=== PATIENT | male | born 1950 | race American Indian/Alaskan Native ===

== ENCOUNTER 2020-09-01 13:07 | Emergency (ER) | payer MEDICARE ==
--- NOTE | 2020-09-01 13:56 | Event Note ---
ED Screening Note Date of service: 09/01/20 Time: 13:55 ED Screening Note: Patient complains of intermittent mid abdominal pain x2 weeks and hematuria x yesterday Denies penile discharge, however states he is concerned for STDs This initial assessment/diagnostic orders/clinical plan/treatment(s) is/are subject to change based on patients health status, clinical progression and re- assessment by fellow clinical providers in the ED. Further treatment and workup at subsequent clinical providers discretion. Patient/guardian urged not to elope from the ED as their condition may be serious if not clinically assessed and managed. Initial orders include: Labs
[2020-09-01 14:47] LABS: Basophils # (Auto) 0.1 K/mm3 (0.0-0.1); Basophils % (Auto) 0.7 % (0.0-1.8); Eosinophils % (Auto) 0.5 % (0.0-4.3); Hematocrit 45.9 % (35.5-45.6); Hemoglobin 15.3 gm/dl (11.8-15.2); Lymphocytes # (Auto) 3.3 K/mm3 (1.2-5.4); Lymphocytes % (Auto) 43.3 % (13.4-35.0); Mean Corpuscular HGB Conc 33 % (32-34); Mean Corpuscular Volume 100 fl (84-94); Monocytes # (Auto) 0.4 K/mm3 (0.0-0.8); Monocytes % (Auto) 5.7 % (0.0-7.3); Platelet Count 361 K/mm3 (140-440); Red Cell Distribution Width 13.1 % (13.2-15.2)
[2020-09-01 14:56] LABS: Bacteria,Urine 1+ /HPF (Negative); Bilirubin,Urine NEG (Negative); Blood,Urine LG (Negative); Color,Urine Amber (Yellow); Mucus,Urine 2+ /HPF; RBC,Urine > 182.0 /HPF (0.0-6.0)
[2020-09-01 15:07] LABS: Alanine Aminotransferase 13 units/L (7-56); Albumin 4.3 g/dL (3.9-5); BUN/Creatinine Ratio 19; Blood Urea Nitrogen 17 mg/dL (9-20); Calcium 9.9 mg/dL (8.4-10.2); Hemolysis Index 5
[2020-09-01] MEDS ORDERED: cefTRIAXone/NS 1 GM/50 ML 1 GM/50 ML BAG IV ONE (19:07)
--- NOTE | 2020-09-01 19:13 | Emergency Department Report ---
<PRUDENCIO MIRANDA - Last Filed: 09/01/20 19:09> ED Male HPI - General Chief complaint: Urogenital-Male Stated complaint: BLOOD IN URINE Time Seen by Provider: 09/01/20 13:55 Source: patient Mode of arrival: Ambulatory Limitations: No Limitations - History of Present Illness Initial comments: Patient is a 70-year-old male with patient history of previous tuberculosis approximately 1 year ago who presents to the emergency department with complaint of blood in his urine. He states that he had sex on Thursday and Thursday however had an episode of bleeding after the sex. It was painless. He denies any penile discharge. He then noticed today when he went to the bathroom that there was blood mixed with the urine when he urinated. He states that he has a family history of cancer although he does not report specifically family history of bladder or prostate cancer. He does state that he is a smoker and has been for the past 50 years. He denies any joint pain no history of renal stones. - Related Data Allergies Allergy/AdvReac Type Severity Reaction Status Date / Time No Known Allergies Allergy Unverified 09/01/20 13:53 ED Review of Systems Constitutional: denies: chills, fever ENT: denies: dental pain Respiratory: denies: cough, shortness of breath Cardiovascular: denies: chest pain Endocrine: no symptoms reported Gastrointestinal: abdominal pain. denies: nausea, vomiting, diarrhea Genitourinary: urgency, hematuria. denies: dysuria, discharge, testicular pain, testicular mass Musculoskeletal: denies: back pain Skin: denies: rash Neurological: denies: headache Psychiatric: denies: anxiety, depression Hematological/Lymphatic: easy bleeding ED Past Medical Hx - Past Medical History Previous Medical History?: No - Surgical History Past Surgical History?: No ED Physical Exam - General Limitations: No Limitations General appearance: alert, in no apparent distress - Head Head exam: Present: atraumatic, normocephalic - Eye Eye exam: Present: normal appearance Pupils: Present: normal accommodation - ENT ENT exam: Present: normal exam - Neck Neck exam: Present: normal inspection - Respiratory Respiratory exam: Present: normal lung sounds bilaterally. Absent: respiratory distress, chest wall tenderness - Cardiovascular Cardiovascular Exam: Present: regular rate, normal rhythm, normal heart sounds - GI/Abdominal GI/Abdominal exam: Present: soft, tenderness (mild, suprapubic). Absent: distended - Rectal Rectal exam: Present: deferred - Extremities Exam Extremities exam: Present: normal inspection - Back Exam Back exam: Present: normal inspection - Neurological Exam Neurological exam: Present: alert, oriented X3 - Psychiatric Psychiatric exam: Present: normal affect - Skin Skin exam: Present: warm, dry, intact ED Medical Decision Making - Lab Data Result diagrams: 09/01/20 14:23 09/01/20 14:23 - Medical Decision Making Patient is a 70-year-old male who presents to the emergency department with comp laint of hematuria. Patient he states that he first noticed this on Thursday or Thursday and then again on today. Patient reports he is a smoker for the past 50 years. Given this my differential is urinary tract infection, sexually transmitted infection, bladder malignancy. Patient to be given a dose of IV ceftriaxone. Will obtain chest x- ray given his report of history of tuberculosis and recent weight loss. We will also obtain a CT abdomen pelvis to evaluate for malignancy. Patient will re quire referral to urology. ED Disposition Clinical Impression: Hematuria Qualifiers: Hematuria type: gross Qualified Code(s): R31.0 - Gross hematuria UTI (urinary tract infection) Qualifiers: Urinary tract infection type: acute cystitis Hydronephrosis Qualifiers: Hydronephrosis type: with ureteral calculous obstruction Qualified Code(s): N13.2 - Hydronephrosis with renal and ureteral calculous obstruction Disposition: -01 TO HOME OR SELFCARE Is pt being admited?: No Does the pt Need Aspirin: No Condition: Stable Instructions: Ureteroscopy, Urinary Tract Infection, Adult, [id number], Hematuria, Adult, Kidney Stones, [id number] Prescriptions: Nitrofurantoin Queens/M-Cryst [Macrobid CAP] 100 mg PO Q12HR 5 Days #10 capsule Referrals: ANDRE FLORES MD [Staff Physician] - 3-5 Days PRIMARY CAREMD [Primary Care Provider] - 3-5 Days AMAN CUENCA MD [Staff Physician] - 3-5 Days Print Language: TAMAZIGHT <JOSEP SHELLEY - Last Filed: 09/01/20 20:44> ED Review of Systems ROS: Stated complaint: BLOOD IN URINE Other details as noted in HPI ED Medical Decision Making - Lab Data Result diagrams: 09/01/20 14:23 09/01/20 14:23 Lab Results 09/01/20 09/01/20 09/01/20 Range/Units 14:11 14:23 14:23 WBC 7.7 (4.5-11.0) K/mm3 RBC 4.60 (3.65-5.03) M/mm3 Hgb 15.3 H (11.8-15.2) gm/dl Hct 45.9 H (35.5-45.6) % MCV 100 H (84-94) fl MCH 33 H (28-32) pg MCHC 33 (32-34) % RDW 13.1 L (13.2-15.2) % Plt Count 361 (140-440) K/mm3 Lymph % (Auto) 43.3 H (13.4-35.0) % [place] % (Auto) 5.7 (0.0-7.3) % Eos % (Auto) 0.5 (0.0-4.3) % Baso % (Auto) 0.7 (0.0-1.8) % Lymph # (Auto) 3.3 (1.2-5.4) K/mm3 [place] # (Auto) 0.4 (0.0-0.8) K/mm3 Eos # (Auto) 0.0 (0.0-0.4) K/mm3 Baso # (Auto) 0.1 (0.0-0.1) K/mm3 Seg Neutrophils % 49.8 (40.0-70.0) % Seg Neutrophils # 3.9 (1.8-7.7) K/mm3 Sodium 140 (137-145) mmol/L Potassium 3.8 (3.6-5.0) mmol/L Chloride 103.9 (98-107) mmol/L Carbon Dioxide 27 (22-30) mmol/L Anion Gap 13 mmol/L BUN 17 (9-20) mg/dL Creatinine 0.9 (0.8-1.3) mg/dL Estimated GFR > 60 ml/min BUN/Creatinine Ratio 19 % Glucose 98 (75-100) mg/dL Calcium 9.9 (8.4-10.2) mg/dL Total Bilirubin 0.40 (0.1-1.2) mg/dL AST 14 (5-40) units/L ALT 13 (7-56) units/L Alkaline Phosphatase 91 (35-129) units/L Total Protein 7.6 (6.3-8.2) g/dL Albumin 4.3 (3.9-5) g/dL Albumin/Globulin Ratio 1.3 % Urine Color Adelaida (Yellow) Urine Turbidity Cloudy (Clear) Urine pH 6.0 (5.0-7.0) Ur Specific [place] 1.017 (1.003-1.030) Urine Protein 100 mg/dl (Negative) mg/dL Urine Glucose (UA) Neg (Negative) mg/dL Urine Ketones Neg (Negative) mg/dL Urine Blood Lg (Negative) Urine Nitrite Neg (Negative) Urine Bilirubin Neg (Negative) Urine Urobilinogen 2.0 (<2.0) mg/dL Ur Leukocyte Esterase Sm (Negative) Urine WBC (Auto) 90.0 H (0.0-6.0) /HPF Urine RBC (Auto) > 182.0 (0.0-6.0) /HPF Urine Bacteria (Auto) 1+ (Negative) /HPF Urine Mucus 2+ /HPF - Radiology Data Ordering Physician: PRUDENCIO MIRANDA MD Date of Service: 09/01/20 Procedure(s): CT abdomen pelvis w con Accession Number(s): [id number] cc: PRUDENCIO MIRANDA MD CT abdomen pelvis w con INDICATION: abdominal pain and hematuria. TECHNIQUE: All CT scans at this location are performed using CT dose reduction for ALARA by means of automated exposure control. COMPARISON: None available. FINDINGS: Lung bases are clear of acute disease. Small liver cysts. Gallbladder, spleen, pancreas, right kidney and both adrenals are negative. Left kidney is hydronephrotic, with dilatation of the left ureter. There is a 7.5 mm calculus in the proximal to mid ureter at the level of the L5 vertebral body. Pelvis Urinary bladder and distal ureters are negative. Sigmoid diverticulosis but no diverticulitis. Bone density is slightly unusual, with slightly increased density diffusely but multiple tiny lucent lesions in the pelvis. This is not a characteristic pattern of disease may represent only a normal variant. IMPRESSION: 1. 7.5 mm calculus in the mid left ureter, causing significant obstruction. 2. Questionably unusual bone density. Suggest clinical correlation. Signer Name: Gregorio Colin MD Signed: 09/01/2020 8:07 PM Workstation Name: [id number] - Medical Decision Making Patient is pain-free at this time. CT does show a 7.5mm stone in the proximal ureter on the left. Appears to the patient is pain is controlled at this time and will be stable for discharge. Patient still will need to be sent home with antibiotics. Will be given the patient follow-up with urology. Critical care attestation.: If time is entered above; I have spent that time in minutes in the direct care of this critically ill patient, excluding procedure time. ED Disposition Time of Disposition: 20:43
--- NOTE | 2020-09-01 19:39 | XRay Report ---
CHEST 1 VIEW 09/01/2020 6:28 PM INDICATION / CLINICAL INFORMATION: 22 lb weight loss; hx of tb. COMPARISON: None available. FINDINGS: SUPPORT DEVICES: None. HEART / MEDIASTINUM: No significant abnormality. LUNGS / PLEURA: No significant pulmonary or pleural abnormality. No pneumothorax. ADDITIONAL FINDINGS: No significant additional findings. IMPRESSION: 1. No acute findings. Signer Name: Mark Brock MD Signed: 09/01/2020 7:34 PM Workstation Name: [id number]
--- NOTE | 2020-09-01 20:11 | Cat Scan Report ---
CT abdomen pelvis w con INDICATION: abdominal pain and hematuria. TECHNIQUE: All CT scans at this location are performed using CT dose reduction for ALARA by means of automated e xposure control. COMPARISON: None available. FINDINGS: Lung bases are clear of acute disease. Small liver cysts. Gallbladder, spleen, pancreas, right kidney and both adrenals are negative. Left kidney is hydronephrotic, with dilatation of the left ureter. T here is a 7.5 mm calculus in the proximal to mid ureter at the level of the L5 vertebral body. Pelvis Urinary bladder and distal ureters are negative. Sigmoid diverticulosis but no diverticulitis. Bone density is slightly unusual, with slightly increased density diffusely but multiple tiny lucent lesions in the pelvis. This is not a characteristic pattern of disease may represent only a normal va riant. IMPRESSION: 1. 7.5 mm calculus in the mid left ureter, causing significant obstruction. 2. Questionably unusual bone density. Suggest clinical correlation. Signer Name: Gregorio Colin MD Signed: 09/01/2020 8:07 PM Workstation Name: [id number]
[2020-09-01 20:58] VITALS: BP 152/97
== END 2020-09-01 20:55 | disposition home or self-care (01) ==
LOC: ED 13:07
DX: N39.0 Urinary tract infection, site not specified (principal); N13.30 Unspecified hydronephrosis; R31.9 Hematuria, unspecified
CPT/HCPCS: 36415; 71045; 74177; 80053; 81001; 85025; 87086; 96365; 99284; J0696; Q9967

== ENCOUNTER 2020-11-12 08:37 | Day surgery (SDC) | payer MEDICARE ==
--- NOTE | 2020-11-12 08:16 | Anesthesia Day of Surgery ---
Anesthesia Day of Surgery - Day of Surgery Patient Examined: Yes Patient H&P Reviewed: Yes Patient is NPO: Yes
--- NOTE | 2020-11-12 08:16 | Anesthesia Consultation ---
Anesthesia Consult and Med Hx Date of service: 11/12/20 - Airway Anesthetic Teeth Evaluation: Dentures (full upper and lower) ROM Head & Neck: Adequate Mental/Hyoid Distance: Adequate Mallampati Class: Class III Intubation Access Assessment: Possibly Difficult - Pre-Operative Health Status ASA Pre-Surgery Classification: ASA2 Proposed Anesthetic Plan: General - Pulmonary Hx Smoking: Yes Hx Respiratory Symptoms: No - Cardiovascular System Hx Hypertension: Yes (noted in PAT assessment but patient denies; no rx) Hx Heart Attack/AMI: No - Central Nervous System CVA: No - Gastrointestinal Hx Gastroesophageal Reflux Disease: No - Endocrine Hx Renal Disease: No Hx Liver Disease: No Hx Insulin Dependent Diabetes: No Hx Non-Insulin Dependent Diabetes: No - Other Systems Hx Obesity: No - Additional Comments Anesthesia Medical History Comments: No hx anesthetic complications.
[~2020-11-12 08:37] MED LIST: HYDROcodone/ACETAMINOPHEN 5-325 MG TAB PO PRN; LACTATED RINGERS 1,000 ML IV SCH; MIDAZOLAM 2 MG/2 ML INJ IV NR; ONDANSETRON 4 MG/2 ML INJ IV PRN; ceFAZolin/STERILE WATER 2 GM/20 ML SYRINGE IV NR; fentaNYL 100 MCG/2 ML INJ IV PRN
[2020-11-12] MEDS ORDERED: propofoL 200 MG/20 ML VIAL IV ONE (09:21)
[2020-11-12] MEDS ORDERED: dexAMETHasone 20 MG/5 ML VIAL ONE (09:25)
[2020-11-12] MEDS ORDERED: LIDOCAINE MPF (2%) 20 MG/1 ML VIAL 5 ML ONE (09:25)
[2020-11-12] MEDS ORDERED: ONDANSETRON 4 MG/2 ML INJ ONE (09:25)
[2020-11-12] MEDS ORDERED: IOHEXOL 300 MG/ML 50ML IV ONE (09:43)
[2020-11-12] MEDS ORDERED: LIDOCAINE 2% UROJECT 10 ML JELLY ONE (09:45)
[2020-11-12] MEDS ORDERED: LIDOCAINE 2% UROJECT 10 ML JELLY UR ONE (09:56)
--- NOTE | 2020-11-12 10:23 | Post Operative Note ---
Date of procedure: 11/12/20 Pre-op diagnosis: left stone hydro Post-op diagnosis: same Findings: lsft obst Procedure: cysto stent difficult Anesthesia: GETA Surgeon: AMAN CUENCA Estimated blood loss: none Pathology: none Condition: stable Disposition: PACU
--- NOTE | 2020-11-12 10:24 | Discharge Summary ---
Short Stay Discharge Plan Activity: other (no straaining ) Weight Bearing Status: Full Weight Bearing Diet: regular, low salt Special Instructions: other (inc fluids ) Follow up with: PRIMARY CARE, [Primary Care Provider] - 7 Days AMAN CUENCA MD [Staff Physician] - 7 Days
--- NOTE | 2020-11-12 10:33 | Operative Report ---
PREOPERATIVE DIAGNOSES: Severe left hydronephrosis abnormality in the bone with left ureteral stone, stricture. POSTOPERATIVE DIAGNOSES: Ureteral narrowing stricture and tortuosity. PROCEDURE: Cystoscopy, left ureteral manipulation, eventually a placement of stent. SURGEON: Dr. Melissa. ANESTHESIA: General. FINDINGS: This is a gentleman who presents with weight loss, bone abnormalities, left hydronephrosis, stone, no pain. This has been a gradual severe hydronephrosis, now presents for treatment. DESCRIPTION OF PROCEDURE: The patient was brought to the operating table. Following induction of anesthesia, placed in lithotomy position, prepped and draped in usual sterile fashion. Cystourethroscopy showed 1+ trabeculation. Mild BPH. Retrograde showed severe obstruction at the level of the vessels. There was severe tortuosity. We tried multiple catheters. Eventually using a Kumpe, we were able to get a wire coiled up in the kidney using some lidocaine jet and other manipulation. We placed a 6 x 26 double-J stent in good position. The patient tolerated the procedure well. During the case, we were told he was COVID positive and proper precautions were taken. The patient tolerated the procedure well and brought to recovery room in stable condition. He will need a full evaluation and followup ureteroscopy, CT scanning. JOB# [id number] AVANI/BHARGAV
[2020-11-12] MEDS ORDERED: hydrALAZINE 20 MG/1 ML INJ IV PRN (11:00)
[2020-11-12] MEDS ORDERED: hydrALAZINE 20 MG/1 ML INJ ONE (11:01)
[2020-11-12] MEDS ORDERED: cloNIDine 0.1 MG TAB PO ONE (11:20)
--- NOTE | 2020-11-12 12:17 | Post Anesthesia Evaluation ---
- Post Anesthesia Evaluation Patient Participated: Yes Airway Patent: Yes Stable Respiratory Function: Yes Nausea/Vomiting: No Temp > 96.8F: Yes Pain Manageable: Yes Adequeate Hydration: Yes Anesthesia Complications: No Other Comments: COVID test resulted positive while patient was in surgery so was recovered in PACU isolation room. Patient hypertensive in PACU. Attempted to give IV antihypertensive however IV noted to be infiltrated. RN attempted to replace IV unsuccessfully and patient refused further attempts. Given clonidine PO with improvement in BP.
[2020-11-12 14:48] VITALS: BP 169/101
--- NOTE | 2020-11-12 15:14 | Fluoroscopy Report ---
Abdominal fluoroscopy INDICATION: Hydronephrosis. IMPRESSION: Retrograde injection of contrast through the left ureter with placement of a left double- J ureteral stent Fluoroscopy time: 8 minutes 46 seconds. Fluoroscopic images: 6. Signer Name: Ahsan Jensen MD Signed: 11/12/2020 3:09 PM Workstation Name: [id number]
== END 2020-11-12 08:38 | disposition home or self-care (01) ==
LOC: OR 08:37
PROVIDERS: ATTEND Urology
DX: N13.2 Hydronephrosis with renal and ureteral calculous obstruction (principal); Z20.822 Contact with and (suspected) exposure to COVID-19; N13.1 Hydronephrosis with ureteral stricture, not elsewhere classified; N40.0 Benign prostatic hyperplasia without lower urinary tract symptoms; F17.210 Nicotine dependence, cigarettes, uncomplicated; I10 Essential (primary) hypertension; Z98.41 Cataract extraction status, right eye; Z98.42 Cataract extraction status, left eye; Z79.899 Other long term (current) drug therapy; Z98.890 Other specified postprocedural states
CPT/HCPCS: 52330; 52332; 74420; C1726; C1758; C1769; C2617; J0690; J1100; J2405; J2704; J7120; Q9967; U0003; J0360

== ENCOUNTER 2020-12-05 09:54 | Day surgery (SDC) | payer MEDICARE ==
[2020-12-05] MEDS ORDERED: ONDANSETRON 4 MG/2 ML INJ IV PRN (10:16)
[2020-12-05] MEDS ORDERED: HYDROmorphone 1 MG/1 ML INJ IV PRN ×2 (10:16)
--- NOTE | 2020-12-05 10:28 | Anesthesia Consultation ---
Anesthesia Consult and Med Hx Date of service: 12/05/20 - Airway Anesthetic Teeth Evaluation: Dentures, Edentulous ROM Head & Neck: Adequate Mental/Hyoid Distance: Adequate Mallampati Class: Class II Intubation Access Assessment: Good - Pre-Operative Health Status ASA Pre-Surgery Classification: ASA2 Proposed Anesthetic Plan: General - Pulmonary Hx Smoking: Yes Hx Respiratory Symptoms: No - Cardiovascular System Hx Hypertension: Yes (noted in PAT assessment but patient denies; no rx) Hx Heart Attack/AMI: No - Central Nervous System CVA: No Hx Psychiatric Problems: No - Gastrointestinal Hx Gastroesophageal Reflux Disease: No - Endocrine Hx Renal Disease: No Hx Liver Disease: No Hx Insulin Dependent Diabetes: No Hx Non-Insulin Dependent Diabetes: No - Other Systems Hx Cancer: No Hx Obesity: No - Additional Comments Anesthesia Medical History Comments: Here [id number]
[2020-12-05] MEDS ORDERED: LACTATED RINGERS 1,000 ML IV SCH (10:30)
--- NOTE | 2020-12-05 10:32 | Anesthesia Day of Surgery ---
Anesthesia Day of Surgery - Day of Surgery Patient Examined: Yes Patient H&P Reviewed: Yes Patient is NPO: Yes
[2020-12-05] MEDS ORDERED: MIDAZOLAM 2 MG/2 ML INJ IV NR (11:00)
[2020-12-05] MEDS ORDERED: ceFAZolin/STERILE WATER 2 GM/20 ML SYRINGE IV NR (12:00)
[2020-12-05] MEDS ORDERED: ceFAZolin/Water 2 GM/20 ML 2 GM/20 ML SYRINGE IV ONE (12:17)
[2020-12-05] MEDS ORDERED: HYDROmorphone 1 MG/1 ML INJ ONE (13:21)
[2020-12-05] MEDS ORDERED: propofoL 200 MG/20 ML VIAL IV ONE (13:21)
[2020-12-05] MEDS ORDERED: LIDOCAINE MPF (2%) 20 MG/1 ML VIAL 5 ML ONE (13:22)
--- NOTE | 2020-12-05 13:48 | Post Operative Note ---
Date of procedure: 12/05/20 Pre-op diagnosis: ureteral stone Post-op diagnosis: same Findings: recent covid stone obst Procedure: cysto ureteroscopy laser stent Anesthesia: GETA Estimated blood loss: minimal Condition: stable Disposition: PACU
--- NOTE | 2020-12-05 13:49 | Discharge Summary ---
Short Stay Discharge Plan Activity: other (no straining ) Weight Bearing Status: Full Weight Bearing Diet: low fat, low cholesterol, low salt Special Instructions: other (inc fluids ) Follow up with: PRIMARY CARE, [Primary Care Provider] - 7 Days AMAN CUENCA MD [Staff Physician] - 7 Days
[2020-12-05] MEDS ORDERED: WATER FOR IRRIG STERILE 2000 ML IR ONE (14:45)
[2020-12-05] MEDS ORDERED: KETOROLAC 30 MG/1 ML INJ ONE (14:58)
[2020-12-05] MEDS ORDERED: ONDANSETRON 4 MG/2 ML INJ ONE (14:58)
[2020-12-05] MEDS ORDERED: LACTATED RINGERS 1,000 ML ONE (15:05)
--- NOTE | 2020-12-05 15:10 | Operative Report ---
PREOPERATIVE DIAGNOSIS: Impacted left mid ureteral stone. POSTOPERATIVE DIAGNOSIS: Impacted left mid ureteral stone. PROCEDURES: Cystoscopy, left ureteroscopy retrograde with laser of impacted stone. SURGEON: Dr. Melissa. ANESTHESIA: General. FINDINGS: This is a gentleman who had severe obstruction, left side. Eventually, he also had COVID, so we placed a stent. He now presents for first stage procedure. DESCRIPTION OF PROCEDURE: The patient was brought to the operating room and was placed in the operating table. Following induction of anesthesia, placed in lithotomy position, prepped and draped in the usual sterile fashion. Cystourethroscopy showed mild BPH. We were able to exchange the stent over 2 wires. We tried the rigid scope, but there was too much edema at the level of the stone and he also had significant calcification and there is vasculature at the bifurcation. We used a flexible ureteroscope with the single-action pump and we were able to see the stone underneath some epithelium. We started lasering, it was very difficult because of the inflammation, but we got above the stone. We used the access sheath dilator to open up some space and we were able to laser it and looked like the entire stone was freed off the wall, some went up. The patient tolerated the procedure well. A 7-Finnish double-J was placed. He may need a third stage just to be sure there was no more stone, but everything went well or we may just take out the stent. He was brought to recovery room in stable condition. JOB# [id number] AVANI/BHARGAV
--- NOTE | 2020-12-05 15:18 | Fluoroscopy Report ---
CLINICAL INDICATION: STONE MANIPULATION AND STENT PLACEMEDNT TECHNICAL DATA: C-arm imaging was performed. 2.32 seconds and 8 spot images obtained FINDINGS: C-arm imaging was performed. Double pigtail stent placed left ureter IMPRESSION: Stent placement left ureter Signer Name: Alfonso Villagran MD Signed: 12/05/2020 3:13 PM Workstation Name: [id number]
[2020-12-05 16:31] VITALS: BP 147/94
--- NOTE | 2020-12-05 17:24 | Post Anesthesia Evaluation ---
- Post Anesthesia Evaluation Patient Participated: Yes Airway Patent: Yes Stable Respiratory Function: Yes Nausea/Vomiting: No Temp > 96.8F: Yes Pain Manageable: Yes Adequeate Hydration: Yes Anesthesia Complications: No Block Receding Appropriately: Not Applicable Patient on Ventilator: No
== END 2020-12-05 16:14 | disposition home or self-care (01) ==
LOC: OR 09:54
PROVIDERS: ATTEND Urology
DX: N20.1 Calculus of ureter (principal); I10 Essential (primary) hypertension; F17.210 Nicotine dependence, cigarettes, uncomplicated; Z79.899 Other long term (current) drug therapy; Z98.41 Cataract extraction status, right eye; Z98.890 Other specified postprocedural states
CPT/HCPCS: 52356; 74420; A4217; C1726; C1758; C1769; C2617; J0690; J1170; J1885; J2405; J2704; J7120; Q9967

== ENCOUNTER 2021-02-19 06:42 | Observation (INO) | payer MEDICARE ==
[2021-02-19 07:55] LABS: Hematocrit 41.2 % (35.5-45.6); Mean Corpuscular HGB Conc 34 % (32-34); Mean Corpuscular Volume 100 fl (84-94); Platelet Count 357 K/mm3 (140-440); Red Blood Count 4.13 M/mm3 (3.65-5.03); Red Cell Distribution Width 13.6 % (13.2-15.2)
[2021-02-19 08:21] LABS: Alanine Aminotransferase 15 units/L (7-56); Albumin 3.8 g/dL (3.9-5); BUN/Creatinine Ratio 12; Blood Urea Nitrogen 12 mg/dL (9-20); Calcium 9.2 mg/dL (8.4-10.2); Hemolysis Index 7
[2021-02-19 08:33] LABS: Calcium Oxalate Crystals,Urine 3+
[2021-02-19 08:42] LABS: RBC,Urine > 182.0 /HPF (0.0-6.0)
[2021-02-19 08:56] LABS: Color,Urine Red (Yellow)
[2021-02-19 08:57] LABS: Bilirubin,Urine Negative (Negative); Blood,Urine Large (Negative)
--- NOTE | 2021-02-19 09:51 | Emergency Department Report ---
ED Back Pain/Injury HPI - General Chief Complaint: Abdominal Pain Stated Complaint: STENT IS PAINFUL Time Seen by Provider: 02/19/21 09:45 Source: patient Limitations: No Limitations - History of Present Illness Initial Comments: CC: "I need my stent taken out." HPI: This is a 70 yo male with hx of HTN who presents with left flank pain and hematuria. Patient has persistent left leg pain. He was told by his urologist to come to the ER to have the stent removed., Moderate dull flank pain. He denies fever vomiting chest pain shortness of breath. Patient had cystoureteroscopy, ureteral stent, lithotripsy on 12/05/2020 by Ayesha Casarez MD Complaint: back pain -: Gradual, month(s) (3 months since placement of ureteral stent December 05) Similar Symptoms Previously: Yes Place: home Severity: moderate Severity scale (0 -10): 7 Quality: aching Consistency: constant Improves With: none Worsens With: none Associated Symptoms: other (Hematuria) - Related Data Allergies Allergy/AdvReac Type Severity Reaction Status Date / Time No Known Allergies Allergy Verified 12/27/20 12:01 ED Review of Systems ROS: Stated complaint: STENT IS PAINFUL Other details as noted in HPI Comment: All other systems reviewed and negative Constitutional: denies: fever, malaise Respiratory: denies: cough, shortness of breath Gastrointestinal: denies: abdominal pain, nausea, vomiting Musculoskeletal: back pain ED Past Medical Hx - Past Medical History Previous Medical History?: Yes Hx Hypertension: Yes (noted in PAT assessment but patient denies; no rx) Hx Heart Attack/AMI: No Hx Liver Disease: No Hx Renal Disease: No Hx Kidney Stones: Yes - Surgical History Past Surgical History?: Yes Additional Surgical History: catarct. stent (left kidney) - Social History Smoking Status: Current Every Day Smoker Substance Use Type: None ED Physical Exam - General Limitations: No Limitations General appearance: alert, in no apparent distress, other (Nontoxic well- appearing) - Head Head exam: Present: atraumatic, normocephalic - Eye Eye exam: Present: other (Cataract, strabismus) - ENT ENT exam: Present: mucous membranes moist - Neck Neck exam: Present: normal inspection, full ROM - Respiratory Respiratory exam: Present: normal lung sounds bilaterally. Absent: respiratory distress, wheezes, rales, rhonchi - Cardiovascular Cardiovascular Exam: Present: regular rate, normal rhythm, normal heart sounds. Absent: systolic murmur, diastolic murmur, rubs, gallop - GI/Abdominal GI/Abdominal exam: Present: soft, normal bowel sounds. Absent: distended, tenderness, guarding, rebound - Rectal Rectal exam: Present: deferred - Extremities Exam Extremities exam: Present: normal inspection - Back Exam Back exam: Present: normal inspection - Neurological Exam Neurological exam: Present: alert, oriented X3 - Psychiatric Psychiatric exam: Present: normal affect, normal mood - Skin Skin exam: Present: warm, dry, intact, normal color. Absent: rash ED Course Vital Signs 02/19/21 06:52 Temperature 97.8 F Pulse Rate 63 Respiratory 16 Rate Blood Pressure 139/89 O2 Sat by Pulse 98 Oximetry ED Medical Decision Making - Lab Data Result diagrams: 02/19/21 07:22 02/19/21 07:22 - Radiology Data Radiology results: report reviewed Patient Name: IVETH CASTRO Gender: Male Date of : 1950 Referring Provider: SHU SHELLEY Organization: [facility] Accession Number: [id number] Requested Date: February 19, 2021 09:46 Report Status: Final Requested Procedure: 1 Procedure Description: CT abdomen pelvis wo con Modality: CT Findings Reporting MD: Chung Cortes Dictation Time: February 19, 2021 09:24 Process Improvement Engineer: Not available [place] Date: CT ABDOMEN AND PELVIS WITHOUT CONTRAST INDICATION / CLINICAL INFORMATION: kidney stone flank pain ureteral stent. TECHNIQUE: Axial CT images were obtained through the abdomen and pelvis without IV con trast. All CT scans at this location are performed using CT dose reduction for ALARA by means of automated exposure control. COMPARISON: 09/01/2020 FINDINGS: LOWER CHEST: Persistent linear atelectasis right lung base. LIVER: Multiple hepatic cysts are stable. GALLBLADDER: No significant abnormality. BILE DUCTS: No significant abnormality. PANCREAS: No significant abnormality. SPLEEN: No significant abnormality. ADRENALS: No significant abnormality. RIGHT KIDNEY / URETER: Persistent tiny nonobstructive pelvicalyceal stone in the right lower pole measures 2 mm. No hydronephrosis. LEFT KIDNEY / URETER: Interval placement of left-sided JJ ureteral stent with its proximal tip curled in the renal pelvis and its inferior tip curled in appropriate position within the urinary bladder. There is persistent mild left-sided hydronephrosis however the previously noted 8 mm mid ureteral stone has been removed. STOMACH / SMALL BOWEL: No significant abnormality. COLON: Colonic diverticulosis without diverticulitis. APPENDIX: No significant abnormality. PERITONEUM: No free fluid. No free air. No fluid collection. LYMPH NODES: No significant adenopathy. AORTA / ARTERIES: Moderate atherosclerotic calcification without acute abnormality. IVC / VEINS: No significant abnormality. URINARY BLADDER: No significant abnormality. Specifically, no evidence of calcified stone burden. REPRODUCTIVE ORGANS: No significant abnormality. ADDITIONAL FINDINGS: None. SKELETAL SYSTEM: Moderate multilevel degenerative changes are noted of the spine with grade 1 anterolisthesis at L4-L5. No aggressive osseous lesions. IMPRESSION: [employer] [address] , [address] [place] [address] P [phone] F [phone] [facility] - Report exported on Feb 19, 2021 09:58:38 0500 - Page 2 of 2 1. Interval removal of previously noted left mid ureteral stone and placement of JJ ureteral stent in appropriate position. There is persistent mild left hydronephrosis without residual left-sided stone burden. 2. Tiny nonobstructive right pelvicalyceal stone. No hydronephrosis. Signer Name: Chung Cortes MD Signed: 02/19/2021 9:24 AM Workstation Name: [id number] - Medical Decision Making Clinical impression complicated UTI, IV ceftriaxone initiated emergency department. Dr. Melissa urologist consulted. He recommended antibiotics, hospital admission. He plans to have ureteral stent removed tomorrow. Critical care attestation.: If time is entered above; I have spent that time in minutes in the direct care of this critically ill patient, excluding procedure time. ED Disposition Clinical Impression: Complicated UTI (urinary tract infection), S/P ureteral stent placement Disposition: OP ADMIT IP TO THIS HOSP Is pt being admited?: Yes Does the pt Need Aspirin: No Condition: Stable
--- NOTE | 2021-02-19 10:28 | Cat Scan Report ---
CT ABDOMEN AND PELVIS WITHOUT CONTRAST INDICATION / CLINICAL INFORMATION: kidney stone flank pain ureteral stent. TECHNIQUE: Axial CT images were obtained through the abdomen and pelvis without IV contrast. All CT scans at [facility] location are performed using CT dose reduction for ALARA by means of automated exposure control. COMPARISON: 09/01/2020 FINDINGS: LOWER CHEST: Persistent linear atelectasis right lung base. LIVER: Multiple hepatic cysts are stable. GALLBLADDER: No significant abnormality. BILE DUCTS: No significant abnormality. PANCREAS: No significant abnormality. SPLEEN: No significant abnormality. ADRENALS: No significant abnormality. RIGHT KIDNEY / URETER: Persistent tiny nonobstructive pelvicalyceal stone in the right lower pole galen sures 2 mm. No hydronephrosis. LEFT KIDNEY / URETER: Interval placement of left-sided JJ ureteral stent with its proximal tip curled in the renal pelvis and its inferior tip curled in appropriate position within the urinary bladder. There is persistent mild left-sided hydronephrosis however the previously noted 8 mm mid ureteral sto ne has been removed. STOMACH / SMALL BOWEL: No significant abnormality. COLON: Colonic diverticulosis without diverticulitis. APPENDIX: No significant abnormality. PERITONEUM: No free fluid. No free air. No fluid collection. LYMPH NODES: No significant adenopathy. AORTA / ARTERIES: Moderate atherosclerotic calcification without acute abnormality. IVC / VEINS: No significant abnormality. URINARY BLADDER: No significant abnormality. Specifically, no evidence of calcified stone burden. REPRODUCTIVE ORGANS: No significant abnormality. ADDITIONAL FINDINGS: None. SKELETAL SYSTEM: Moderate multilevel degenerative changes are noted of the spine with grade 1 anterol isthesis at L4-L5. No aggressive osseous lesions. IMPRESSION: 1. Interval removal of previously noted left mid ureteral stone and placement of JJ ureteral stent in appropriate position. There is persistent mild left hydronephrosis without residual left-sided stone burden. 2. Tiny nonobstructive right pelvicalyceal stone. No hydronephrosis. Signer Name: Chung Cortes MD Signed: 02/19/2021 10:24 AM Workstation Name: [id number]
[2021-02-19] MEDS ORDERED: ONDANSETRON 4 MG/2 ML INJ IV PRN (11:59)
[2021-02-19] MEDS ORDERED: ACETAMINOPHEN 325 MG TAB PO PRN (11:59)
[2021-02-19] MEDS ORDERED: ALBUTEROL 2.5 MG/3 ML NEBU IH PRN (11:59)
[2021-02-19] MEDS ORDERED: cefTRIAXone/NS 1 GM/50 ML 1 GM/50 ML BAG IV ONE (12:03)
[2021-02-19] MEDS ORDERED: ACETAMINOPHEN 500 MG TAB PO ONE (12:03)
--- NOTE | 2021-02-19 17:46 | History and Physical Report ---
History of Present Illness Date of admission: 02/19/21 11:59 Chief complaint: My left side hurts History of present illness: 70 YO Male with HTN, Nephrolithiasis, Nicotine Dependence presents to ED for evaluation. Pt reports" my left side hurts". Patient states that he has experienced left-sided flank pain as well as blood in his urine over the past 1 week with persistent symptoms over the same timeframe. Patient was seen and evaluated by his urologist Dr. Melissa and instructed to seek further care at [facility]. Patient transported to [facility] via private vehicle for further care and evaluation of the aforementioned symptoms. The patient was seen and evaluated in the emergency department. All lab and imaging studies reviewed. And found to have left-sided hydronephrosis, as well as nephrolithiasis. Urology team consulted in ED. Patient pending surgical intervention in a.m. Patient denies fever, chills, chest pain, palpitation, productive cough, skin rash, recent ill contacts, or known exposure to COVID-19. No prior admission for review. No medication listed at time of admission for reconciliation. Patient treated with empiric IV antibiotic therapy x1 dose in the emergency department. Past History Past Medical History: hypertension, other (See HPI) Past Surgical History: cataract removal, Other (Left renal stent) Social history: . denies: smoking, alcohol abuse, prescription drug abuse Family history: hypertension Medications and Allergies Allergies Allergy/AdvReac Type Severity Reaction Status Date / Time No Known Allergies Allergy Verified 12/27/20 12:01 Home Medications Medication Instructions Recorded Confirmed Last Taken Type No Known Home Medications [No 02/19/21 02/19/21 Unknown History Reported Home Medications] Active Meds: Active Medications Acetaminophen (Acetaminophen 325 Mg Tab) 650 mg PO Q4H PRN PRN Reason: Pain MILD(1-3)/Fever >100.5/MICHAEL Albuterol (Albuterol 2.5 Mg/3 Ml Nebu) 2.5 mg IH Q4HRT PRN PRN Reason: Shortness Of Breath Ondansetron HCl (Ondansetron 4 Mg/2 Ml Inj) 4 mg IV Q8H PRN PRN Reason: Nausea And Vomiting Sodium Chloride (Sodium Chloride 0.9% 10 Ml Flush Syringe) 10 ml IV BID ARIANNA Sodium Chloride (Sodium Chloride 0.9% 10 Ml Flush Syringe) 10 ml IV PRN PRN PRN Reason: LINE FLUSH Review of Systems Constitutional: no weight loss, no weight gain, no fever, no chills Ears, nose, mouth and throat: no ear pain, no ear discharge, no decreased hearing, no nose pain, no nasal congestion, no nasal discharge Cardiovascular: no chest pain, no orthopnea, no palpitations, no rapid/irregular heart beat, no syncope Respiratory: no cough, no excessive sputum, no hemoptysis, no shortness of breath Gastrointestinal: no abdominal pain, no nausea, no vomiting, no constipation Genitourinary Male: hematuria, flank pain, no discharge, no urinary frequency, no nocturia Rectal: no incontinence, no bleeding Musculoskeletal: no neck pain, no arm numbness/tingling, no low back pain, no shooting leg pain, no leg numbness/tingling Integumentary: no rash, no pruritis, no sores, no wounds, no jaundice Neurological: no transient paralysis, no paralysis, no weakness, no parathesias, no tingling, no seizures, no syncope Psychiatric: no anxiety, no memory loss, no sleep disturbances, no insomnia, no change in appetite, no change in libido Endocrine: no cold intolerance, no heat intolerance, no polyphagia, no excessive thirst, no polydipsia, no polyuria, no nocturia, no excessive sweating Hematologic/Lymphatic: no easy bruising, no lymphedema Allergic/Immunologic: no urticaria, no allergic rhinitis, no persistent i nfections, no anaphylaxis, no angioedema Exam - Constitutional Vitals: Temp Pulse Resp BP Pulse Ox 97.8 F 56 L 13 123/80 98 02/19/21 06:52 02/19/21 15:00 02/19/21 15:00 02/19/21 15:00 02/19/21 15:00 General appearance: Present: mild distress, cachectic - EENT Eyes: Present: PERRL ENT: hearing intact, clear oral mucosa - Neck Neck: Present: supple, normal ROM - Respiratory Respiratory effort: normal Respiratory: bilateral: CTA - Cardiovascular Heart Sounds: Present: S1 & S2. Absent: rub, click - Extremities Extremities: pulses symmetrical, No edema Peripheral Pulses: within normal limits - Abdominal General gastrointestinal: Present: soft, tender, non-distended, normal bowel sounds Male genitourinary: Present: normal - Integumentary Integumentary: Present: clear, warm, dry - Musculoskeletal Musculoskeletal: gait normal, strength equal bilaterally - Psychiatric Psychiatric: appropriate mood/affect, intact judgment & insight - Neurologic Neurologic: CNII-XII intact, moves all extremities Results - Labs CBC & Chem 7: 02/19/21 07:22 02/19/21 07:22 Labs: Abnormal lab results 02/19/21 02/19/21 02/19/21 Range/Units 07:22 07:22 Unknown MCV 100 H (84-94) fl MCH 34 H (28-32) pg Total Protein 6.2 L (6.3-8.2) g/dL Albumin 3.8 L (3.9-5) g/dL Urine Blood Large A (Negative) Assessment and Plan - Patient Problems (1) Nephrolithiasis Current Visit: Yes Status: Acute Plan to address problem: Pain control, supportive care, CT scan abdomen and pelvis, urology team consulted. (2) Hydronephrosis Current Visit: Yes Status: Acute Qualifiers: Hydronephrosis type: unspecified Qualified Code(s): N13.30 - Unspecified hydronephrosis Plan to address problem: CT scan abdomen pelvis, supportive care, and urology team consulted. Patient pending surgical intervention in a.m. Further care and management as per urology team. (3) Hypertension Current Visit: Yes Status: Acute Qualifiers: Hypertension type: essential hypertension Qualified Code(s): I10 - Essential (primary) hypertension Plan to address problem: Monitor blood pressure every shift, continue medical management. (4) Malnutrition Current Visit: Yes Status: Acute Qualifiers: Protein-calorie malnutrition severity: moderate Plan to address problem: Dietary supplementation, increase protein intake. (5) DVT prophylaxis Current Visit: Yes Status: Acute Plan to address problem: SCD to bilateral lower extremities while in bed, patient is ambulatory
--- NOTE | 2021-02-20 08:26 | Progress Note ---
Assessment and Plan retained stent rec removal infoemed consent Subjective Date of service: 02/20/21 Principal diagnosis: flank pain Objective - Constitutional Vitals: Vital Signs - 12hr 02/20/21 02/20/21 02/20/21 00:00 00:14 05:11 Temperature 98.6 F 98.6 F 98.6 F Pulse Rate 68 67 Respiratory 18 18 Rate Blood Pressure 138/70 142/93 O2 Sat by Pulse 99 96 Oximetry 02/20/21 02/20/21 02/20/21 05:12 05:15 08:05 Temperature Pulse Rate 66 Respiratory 18 Rate Blood Pressure O2 Sat by Pulse 95 99 Oximetry General appearance: Present: no acute distress - Neck Neck: supple - Respiratory Respiratory effort: normal - Labs CBC & Chem 7: 02/19/21 07:22 02/19/21 07:22 Labs: Abnormal lab results 02/19/21 Range/Units Unknown Urine Blood Large A (Negative) Medications & Allergies - Medications Allergies/Adverse Reactions: Allergies No Known Allergies Allergy (Verified 12/27/20 12:01) Home Medications: Home Medications Medication Instructions Recorded Confirmed Last Taken Type No Known Home Medications [No 02/19/21 02/19/21 Unknown History Reported Home Medications] Active Medications: Generic Name Dose Route Start Last Admin Trade Name Freq PRN Reason Stop Dose Admin Acetaminophen 650 mg 02/19/21 11:59 Acetaminophen 325 Mg Tab PO Q4H PRN Pain MILD(1-3)/Fever >100.5/MICHAEL Albuterol 2.5 mg 02/19/21 11:59 Albuterol 2.5 Mg/3 Ml Nebu IH Q4HRT PRN Shortness Of Breath Ondansetron HCl 4 mg 02/19/21 11:59 Ondansetron 4 Mg/2 Ml Inj IV Q8H PRN Nausea And Vomiting Sodium Chloride 10 ml 02/19/21 22:00 02/19/21 21:55 Sodium Chloride 0.9% 10 Ml Flush Syringe IV 10 ml BID ARIANNA Administration Sodium Chloride 10 ml 02/19/21 11:59 Sodium Chloride 0.9% 10 Ml Flush Syringe IV PRN PRN LINE FLUSH
--- NOTE | 2021-02-20 09:06 | Consultation ---
DATE OF CONSULTATION: 02/19/2021 HISTORY OF PRESENT ILLNESS: The patient is a gentleman with history of stone disease. He has a stent. He did not want it removed in the office. He now presents with severe intermittent pain for stent removal. He is being admitted with IV antibiotics and pain control. PAST MEDICAL HISTORY: As above. SOCIAL HISTORY: Negative. FAMILY HISTORY: Hypertension, heart disease. PAST MEDICAL HISTORY: Hypertension. ALLERGIES: Negative. MEDICATIONS: Pain medication and nausea medication. REVIEW OF SYSTEMS: As mentioned above. PHYSICAL EXAMINATION: GENERAL: He is awake. He is in no distress. ABDOMEN: Soft, nondistended. IMPRESSION: Retained stent for removal, possible ureteroscopy, possible laser. Scan was reviewed and the stent is in good position, mild dilatation, mild to moderate left hydronephrosis. TID: [id number] RECEIPT: [id number] AVANI/GERONIMO
--- NOTE | 2021-02-20 10:20 | Anesthesia Day of Surgery ---
Anesthesia Day of Surgery - Day of Surgery Patient Examined: Yes Patient H&P Reviewed: Yes Patient is NPO: Yes
--- NOTE | 2021-02-20 10:20 | Anesthesia Consultation ---
Anesthesia Consult and Med Hx Date of service: 02/20/21 - Airway Anesthetic Teeth Evaluation: Edentulous ROM Head & Neck: Adequate Mental/Hyoid Distance: Adequate Mallampati Class: Class II Intubation Access Assessment: Good - Pulmonary Exam CTA: Yes - Cardiac Exam Cardiac Exam: RRR - Pre-Operative Health Status ASA Pre-Surgery Classification: ASA2 Proposed Anesthetic Plan: General - Pulmonary Hx Smoking: Yes Hx Respiratory Symptoms: No Hx Sleep Apnea: No - Cardiovascular System Hx Hypertension: Yes (noted in PAT assessment but patient denies; no rx) Hx Heart Attack/AMI: No - Central Nervous System CVA: No Hx Psychiatric Problems: No - Gastrointestinal Hx Gastroesophageal Reflux Disease: No - Endocrine Hx Renal Disease: No Hx Liver Disease: No Hx Insulin Dependent Diabetes: No Hx Non-Insulin Dependent Diabetes: No - Other Systems Hx Cancer: No Hx Obesity: No
[2021-02-20] MEDS ORDERED: HYDROmorphone 1 MG/1 ML INJ IV PRN (10:27)
[2021-02-20] MEDS ORDERED: ONDANSETRON 4 MG/2 ML INJ IV PRN (10:27)
[2021-02-20] MEDS ORDERED: IOHEXOL 300 MG/ML 100ML IV ONE (10:45)
--- NOTE | 2021-02-20 11:02 | Post Operative Note ---
Date of procedure: 02/20/21 Pre-op diagnosis: retained stent stones Post-op diagnosis: same Findings: stent Procedure: cysto ureteroscopy stent removal Anesthesia: NATALIO Surgeon: AMAN CUENCA Estimated blood loss: none Pathology: none Condition: stable Disposition: PACU
--- NOTE | 2021-02-20 11:04 | Discharge Summary ---
Short Stay Discharge Plan Activity: other (no straining ) Weight Bearing Status: Full Weight Bearing Diet: low fat, low cholesterol, low salt Special Instructions: other (inc fluids ) Follow up with: Rajinder QUINTERO PT DOES NOT KNOW NAME [Other] - 3-5 Days
--- NOTE | 2021-02-20 11:23 | Fluoroscopy Report ---
INTRAOPERATIVE FLUOROSCOPY INDICATION / CLINICAL INFORMATION: STENT REMOVAL AND STONE MANIPULATION. TECHNIQUE: Intraoperative spot images were obtained during the procedure. FINDINGS: Intraoperative fluoroscopy images See operative/procedure note by performing physician for full details. Fluoroscopy Time: 34 seconds. Fluoroscopy Images: 4. Signer Name: Keshawn Rubio MD Signed: 02/20/2021 11:18 AM Workstation Name: [id number]
[2021-02-20 12:43] VITALS: BP 151/94
--- NOTE | 2021-02-20 12:57 | Operative Report ---
DATE OF SURGERY: 02/20/2021 PREOPERATIVE DIAGNOSIS: Retained left stent intermittent pain, possible stone. POSTOPERATIVE DIAGNOSIS: Retained left stent intermittent pain, possible stone. PROCEDURES: Cystoscopy, stent removal, flexible ureteroscopy with retrograde. SURGEON: Dr. Melissa. ANESTHESIA: General. FINDINGS: This is a gentleman with intermittent pain, retained stent. He came to the Emergency Room, was admitted, now presents for evaluation. DESCRIPTION OF PROCEDURE: The patient was brought to the operating room and placed on the operating table. Following induction of anesthesia, placed in lithotomy position, prepped and draped in usual sterile fashion. Cystourethroscopy showed a moderately inflamed bladder from the stent. The stent was easily withdrawn under fluoroscopic guidance. Retrograde showed what appeared to be some filling defect looked like air bubbles. CT scan was reviewed, did not show stones, but we easily placed a flexible scope over the wire and did not see any significant stones. The patient tolerated the procedure well. There was some chronic hydro, but the plan will be keep the stent out. The ureter was wide open and brought to recovery in stable condition. TID: [id number] RECEIPT: [id number] AVANI/[place]
--- NOTE | 2021-02-20 15:27 | Discharge Summary ---
Providers - Providers Date of Admission: 02/19/21 11:59 Date of discharge: 02/20/21 Attending physician: ELZA CABRERA Hospitalization Condition: Stable Pertinent studies: Abdominal pelvis CT, retrograde pyelogram Hospital course: 70 YO Male with HTN, Nephrolithiasis, Nicotine Dependence presents to ED with left sided abdominal pain. Patient states that he has experienced left-sided flank pain as well as blood in his urine over the past 1 week. Patient was seen and evaluated by his urologist Dr. Melissa and instructed to seek further care at [facility]. All lab and imaging studies reviewed. And found to have left-sided hydronephrosis, as well as nephrolithiasis due to retained stent. Urology team consulted in ED. s/p cystogram and removal of stent by Urology. Patient was then discharged home in stable condition with outpt f/u with urologist. Disposition: HOME HEALTH CARE SERVICE Final Discharge Diagnosis (Prints w/discharge instructions): Hydronephrosis status post cysto ureteroscopy and stent removal by urology. Moderate malnutrition, encouraged balanced diet and nutritional supplements Time spent for discharge: 34 minutes Core Measure Documentation - Palliative Care Palliative Care/ Comfort Measures: Not Applicable - Core Measures Any of the following diagnoses?: none Exam - Physical Exam Narrative exam: General appearance: Present: mild distress, malnourished - EENT Eyes: Present: PERRL ENT: hearing intact, clear oral mucosa - Neck Neck: Present: supple, normal ROM - Respiratory Respiratory effort: normal Respiratory: bilateral: CTA - Cardiovascular Heart Sounds: Present: S1 & S2. Absent: rub, click - Extremities Extremities: pulses symmetrical, No edema Peripheral Pulses: within normal limits - Abdominal General gastrointestinal: Present: soft, tender, non-distended, normal bowel sounds Male genitourinary: Present: normal - Integumentary Integumentary: Present: clear, warm, dry - Musculoskeletal Musculoskeletal: gait normal, strength equal bilaterally - Psychiatric Psychiatric: appropriate mood/affect, intact judgment & insight - Constitutional Vitals: Temp Pulse Resp BP Pulse Ox 98 F 67 18 151/94 97 02/20/21 12:00 02/20/21 12:00 02/20/21 12:00 02/20/21 12:00 02/20/21 12:00 Plan Activity: advance as tolerated Diet: low fat, low salt Follow up with: DR,Z PT DOES NOT KNOW NAME [Other] - 3-5 Days AMAN MELISSA MD [Staff Physician] - 7 Days
--- NOTE | 2021-02-20 16:19 | Post Anesthesia Evaluation ---
- Post Anesthesia Evaluation Patient Participated: Yes Airway Patent: Yes Stable Respiratory Function: Yes Nausea/Vomiting: No Temp > 96.8F: Yes Pain Manageable: Yes Adequeate Hydration: Yes Anesthesia Complications: No
== END 2021-02-20 14:35 | disposition home or self-care (01) ==
LOC: ED 06:42 → 3A 11:59
PROVIDERS: ADMIT Internal Medicine; ATTEND Internal Medicine
DX: N20.0 Calculus of kidney (principal); N13.30 Unspecified hydronephrosis; I10 Essential (primary) hypertension; E46 Unspecified protein-calorie malnutrition; N39.0 Urinary tract infection, site not specified; F17.200 Nicotine dependence, unspecified, uncomplicated; Z68.1 Body mass index [BMI] 19.9 or less, adult; Z98.49 Cataract extraction status, unspecified eye
CPT/HCPCS: 36415; 52310; 74176; 74420; 80053; 81001; 85027; 96365; 99284; C1726; C1758; C1769; G0378; J0696; Q9967